=== PATIENT | female | born 1995 | race Hispanic/Latino ===

== ENCOUNTER 2024-10-11 18:05 | Emergency (ER) | payer OTHER ==
[~2024-10-11] VITALS: Ht 170.2 cm; Wt 132.0 kg
[2024-10-11 18:53] LABS: BASOPHILS 0.3 % (0.1-1.2); EOSINOPHILS 1.8 % (0.7-5.8); LYMPHOCYTES 18.9 % (19.3-51.7); MCH 27.9 PG (25.6-32.2); MCHC 32.2 g/dL (32.2-35.5); MCV 86.7 fL (79.4-94.8); MONOCYTES 8.6 % (4.7-12.5); NEUTROPHILS 70.2 % (34.0-71.1); RBC 4.51 M/uL (3.93-5.22)
[2024-10-11 18:54] LABS: BLOOD/HGB, URINE LARGE (Negative); KETONE, URINE TRACE (Negative); LEUK ESTERASE, URINE TRACE (negative); NITRITE, URINE POSITIVE (negative)
--- OUTSIDE RECORDS SUMMARY | 2024-10-11 19:12 | XMS ---
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 E.D. VISIT COUNT (12 MO.) 1 LES[facility]E [facility] TOTAL 2 NOTE: Visits indicate total known visits. ED/UCC VISIT TRACKING (12 MO.) 10/11/2024 18:06 [facility] [place] TYPE: Emergency COMPLAINT: - POSS KIDNEY STONE 10/11/2024 00:14 [facility] [place] TYPE: Emergency DIAGNOSES: - Calculus of ureter - Solitary pulmonary nodule - Unspecified renal colic - Abdominal Pain INPATIENT VISIT TRACKING (12 MO.) 04/23/2024 07:30 [facility] [place] TYPE: Womens Services COMPLAINT: - Management of Labor and Delivery DIAGNOSES: - Management of Labor and Delivery [id number]
[2024-10-11 19:13] LABS: BACTERIA, URINE 1+ /hpf (negative); CASTS, URINE NONE SEEN \\lpf; CRYSTALS, URINE NONE SEEN (0-1+); EPITHELIAL CELLS, URINE SQUAMOUS 2+ /lpf (0-1+)
[2024-10-11 19:14] LABS: REFLEX CULTURE, URINE No (No)
[2024-10-11 19:14] LABS: ALT (SGPT) 30.0 U/L (14-59); AST (SGOT) 18.0 U/L (15-37); GLOMERULAR FILTRATION RATE,EST 62.0 mL/min (>60); PROTEIN, TOTAL 6.2 g/dL (6.4-8.2); UREA NITROGEN 11.0 mg/dL (7-18)
[2024-10-11 21:33] VITALS: BP 135/67
== END 2024-10-11 21:34 | disposition home or self-care (01) ==
LOC: ED 18:05
PROVIDERS: Emergency Medicine
DX: N23 Unspecified renal colic (principal)
CPT/HCPCS: 36415; 80053; 81001; 85025; 99284